=== PATIENT | female | born 1985 | race Hispanic/Latino ===

== ENCOUNTER 2022-09-18 09:10 | Emergency (ER) | payer OTHER ==
[~2022-09-18] VITALS: Ht 157.5 cm; Wt 64.9 kg
[2022-09-18] MEDS ORDERED: TAMIFLU75 MG PO (11:52)
== END 2022-09-18 11:50 | disposition home or self-care (01) ==
LOC: ER 09:24
DX: R05.9 Cough, unspecified (principal); J10.1 Influenza due to other identified influenza virus with other respiratory manifestations; J45.909 Unspecified asthma, uncomplicated; Z20.822 Contact with and (suspected) exposure to COVID-19
CPT/HCPCS: 99283; U0002